=== PATIENT | male | born 1955 | race American Indian/Alaskan Native ===

== ENCOUNTER 2021-09-10 07:21 | Emergency (ER) | payer MEDICARE, MEDICAID ==
[2021-09-10 08:25] VITALS: BP 138/71
--- NOTE | 2021-09-10 10:23 | Emergency Department Report ---
ED General Adult HPI - General Chief complaint: Anxiety Stated complaint: SOB, CAN'T SLEEP Source: patient Mode of arrival: Ambulatory Limitations: No Limitations - History of Present Illness Initial comments: Chief complaint: "I have not been sleeping for the last 3 days. It is my anxiety." History: This is a 65-year-old male with history of tobacco dependence PR, congestive heart failure, hepatitis C, osteoarthritis of the left knee, diabetes mellitus, chronic back pain with sciatica, thyroid disease who presents with insomnia chronic back pain. He attempted melatonin [id number] without relief. He currently smokes half a pack of cigarettes per day. Receives care at the [facility]. He denies depression. Denies suicidal homicidal ideation. Patient has back pain radiating to the left leg which is unchanged. He denies new leg weakness. Denies bowel bladder incontinence. -: Gradual, days(s) (3 days ago) Severity scale (0 -10): 0 Consistency: intermittent, other (Racing thoughts at night) Worsens with: none Associated Symptoms: other (Chronic back and leg pain.) Treatments Prior to Arrival: other (Melatonin) - Related Data Home Medications Medication Instructions Recorded Confirmed Last Taken Oxycodone HCl/Acetaminophen 1 tab PO PRN PRN 06/07/16 06/19/16 06/18/16 [Percocet 10/325 mg] hydroCHLOROthiazide [HCTZ] 25 mg PO QDAY 06/07/16 06/19/16 06/18/16 Previous Rx's Medication Instructions Recorded Last Taken Type Levothyroxine [Synthroid] 125 mcg PO QAM #30 tablet 09/30/15 06/18/16 Rx Losartan [Cozaar] 100 mg PO DAILY #30 tablet 09/30/15 06/18/16 Rx glipiZIDE [glipiZIDE XL] 10 mg PO DAILY #30 tab.er.24 09/30/15 06/17/16 Rx Cyclobenzaprine [Flexeril] 10 mg PO TID PRN #30 tablet 09/10/21 Unknown Rx Allergies Allergy/AdvReac Type Severity Reaction Status Date / Time morphine Allergy Makes me Verified 06/13/16 10:30 hugo ED Review of Systems ROS: Stated complaint: SOB, CAN'T SLEEP Other details as noted in HPI Comment: All other systems reviewed and negative Constitutional: denies: chills, fever, malaise Respiratory: denies: cough, shortness of breath Cardiovascular: denies: chest pain Musculoskeletal: back pain Psychiatric: anxiety. denies: depression, auditory hallucinations, visual hallucinations, homicidal thoughts, suicidal thoughts ED Past Medical Hx - Past Medical History Previous Medical History?: Yes Hx Hypertension: Yes (x 9 yrs) Hx CVA: No Hx Heart Attack/AMI: No Hx Congestive Heart Failure: Yes Hx Diabetes: Yes Hx Deep Vein Thrombosis: No Hx Pulmonary Embolism: No Hx GERD: No Hx Liver Disease: No Hx Renal Disease: No Hx Sickle Cell Disease: No Hx Arthritis: No Hx Headaches / Migraines: No Hx Seizures: No Hx Kidney Stones: No Hx Psychiatric Treatment: No Hx Asthma: No Hx COPD: No Hx Tuberculosis: No Hx Dementia: No Hx HIV: No Additional medical history: hepatitis C - Surgical History Past Surgical History?: Yes Hx Coronary Stent: No Hx Open Heart Surgery: No Hx Pacemaker: No Hx Internal Defibrillator: No Hx Cholecystectomy: No Hx Appendectomy: No Hx Breast Surgery: No Additional Surgical History: back surgery,finger surgery on rt hand, - Social History Smoking Status: Current Every Day Smoker - Medications Home Medications: Home Medications Medication Instructions Recorded Confirmed Last Taken Type Levothyroxine [Synthroid] 125 mcg PO QAM #30 tablet 09/30/15 06/19/16 06/18/16 Rx Losartan [Cozaar] 100 mg PO DAILY #30 tablet 09/30/15 06/19/16 06/18/16 Rx glipiZIDE [glipiZIDE XL] 10 mg PO DAILY #30 tab.er.24 09/30/15 06/19/16 06/17/16 Rx Oxycodone HCl/Acetaminophen 1 tab PO PRN PRN 06/07/16 06/19/16 06/18/16 History [Percocet 10/325 mg] hydroCHLOROthiazide [HCTZ] 25 mg PO QDAY 06/07/16 06/19/16 06/18/16 History Cyclobenzaprine [Flexeril] 10 mg PO TID PRN #30 tablet 09/10/21 Unknown Rx ED Physical Exam - General Limitations: No Limitations General appearance: alert, in no apparent distress, other (Pleasant jovial articulate appears in good spirits) - Head Head exam: Present: atraumatic, normocephalic - Eye Eye exam: Present: normal appearance - ENT ENT exam: Present: mucous membranes moist - Neck Neck exam: Present: normal inspection, full ROM - Respiratory Respiratory exam: Present: normal lung sounds bilaterally. Absent: respiratory distress, wheezes, rales, rhonchi - Cardiovascular Cardiovascular Exam: Present: regular rate, normal rhythm, normal heart sounds. Absent: systolic murmur, diastolic murmur, rubs, gallop - GI/Abdominal GI/Abdominal exam: Present: soft, normal bowel sounds. Absent: distended, tenderness, guarding, rebound - Rectal Rectal exam: Present: deferred - Extremities Exam Extremities exam: Present: normal inspection - Neurological Exam Neurological exam: Present: alert, oriented X3, normal gait - Psychiatric Psychiatric exam: Present: normal affect, normal mood - Skin Skin exam: Present: warm, dry, intact, normal color. Absent: rash ED Course Vital Signs 09/10/21 08:24 Temperature 97.8 F Pulse Rate 62 Respiratory 18 Rate Blood Pressure 138/71 [Right] O2 Sat by Pulse 99 Oximetry ED Medical Decision Making - Medical Decision Making 1. Anxiety insomnia recommended smoking cessation especially in the evening time. He will double the dose of [id number] melatonin to 10 mg. 2. Chronic back pain with sciatica: Prescribed Flexeril. Referred to internal medicine physician and training development specialist. Critical care attestation.: If time is entered above; I have spent that time in minutes in the direct care of this critically ill patient, excluding procedure time. ED Disposition Clinical Impression: Anxiety, Insomnia, Sciatica Disposition: 01 HOME / SELF CARE / HOMELESS Is pt being admited?: No Does the pt Need Aspirin: No Condition: Stable Instructions: Sciatica, Managing Anxiety, Adult, Insomnia Prescriptions: Cyclobenzaprine [Flexeril] 10 mg PO TID PRN #30 tablet PRN Reason: Muscle Spasm Referrals: SAHIL CHAUDHARI MD [Staff Physician] - 3-5 Days TITO TAVERAS II, MD [Staff Physician] - 3-5 Days
== END 2021-09-10 10:44 | disposition home or self-care (01) ==
LOC: ED 07:21
DX: F41.9 Anxiety disorder, unspecified (principal); G47.00 Insomnia, unspecified; M54.30 Sciatica, unspecified side; I10 Essential (primary) hypertension; E11.9 Type 2 diabetes mellitus without complications; Z86.79 Personal history of other diseases of the circulatory system; Z88.6 Allergy status to analgesic agent
CPT/HCPCS: 99282

== ENCOUNTER 2022-03-01 16:47 | Emergency (ER) | payer MEDICAID, MEDICARE ==
--- NOTE | 2022-03-01 22:00 | Emergency Department Report ---
ED General Adult HPI - General Chief complaint: Extremity Problem,Nontraumatic Stated complaint: SWOLLEN LEG Time Seen by Provider: 03/01/22 21:00 Source: patient Mode of arrival: Ambulatory Limitations: No Limitations - History of Present Illness Initial comments: Patient 66-year-old male with history of hypertension, diabetes , arthritis and hypothyroidism who presents for right lower extremity pain and swelling x2 weeks. Patient states seen in urgent care referred to ED for rule out DVT. Patient denies suspicious travel or prolonged sitting or standing. Patient does have history of arthralgia. Pain is described as aching and tightness 4/10. Patient denies pain with dorsiflexion , there is no numbness or tingling, pain is radiating from ankle to right calf. Patient denies history of DVT. Not currently on coagulation therapy. Patient denies shortness of breath there is no fever chills there is no PND there is no chest pain no nausea or vomiting no lightheadedness or dizziness. Patient is retired. Severity scale (0 -10): 3 - Related Data Home Medications Medication Instructions Recorded Confirmed Last Taken Oxycodone HCl/Acetaminophen 1 tab PO PRN PRN 06/07/16 06/19/16 06/18/16 [Percocet 10/325 mg] Previous Rx's Medication Instructions Recorded Last Taken Type Levothyroxine [Synthroid] 125 mcg PO QAM #30 tablet 09/30/15 06/18/16 Rx Losartan [Cozaar] 100 mg PO DAILY #30 tablet 09/30/15 06/18/16 Rx glipiZIDE [glipiZIDE XL] 10 mg PO DAILY #30 tab.er.24 09/30/15 06/17/16 Rx Cyclobenzaprine [Flexeril] 10 mg PO TID PRN #30 tablet 09/10/21 Unknown Rx hydroCHLOROthiazide [HCTZ] 25 mg PO QDAY #30 tab 03/01/22 Unknown Rx Allergies Allergy/AdvReac Type Severity Reaction Status Date / Time morphine Allergy Makes me Verified 03/01/22 17:13 hugo ED Review of Systems ROS: Stated complaint: SWOLLEN LEG Other details as noted in HPI Constitutional: denies: chills, fever Eyes: denies: eye pain, eye discharge, vision change ENT: denies: ear pain, throat pain Respiratory: denies: cough, shortness of breath, wheezing Cardiovascular: denies: chest pain, palpitations Endocrine: no symptoms reported Gastrointestinal: denies: abdominal pain, nausea, diarrhea Genitourinary: denies: urgency, dysuria Musculoskeletal: arthralgia, other (Right lower extremity pain and swelling). denies: back pain, joint swelling Skin: as per HPI Neurological: denies: headache, weakness, paresthesias Psychiatric: denies: anxiety, depression Hematological/Lymphatic: denies: easy bleeding, easy bruising ED Past Medical Hx - Past Medical History Hx Hypertension: Yes (x 9 yrs) Hx CVA: No Hx Heart Attack/AMI: No Hx Congestive Heart Failure: Yes Hx Diabetes: Yes Hx Deep Vein Thrombosis: No Hx Pulmonary Embolism: No Hx GERD: No Hx Liver Disease: No Hx Renal Disease: No Hx Sickle Cell Disease: No Hx Arthritis: No Hx Headaches / Migraines: No Hx Seizures: No Hx Kidney Stones: No Hx Psychiatric Treatment: No Hx Asthma: No Hx COPD: No Hx Tuberculosis: No Hx Dementia: No Hx HIV: No Additional medical history: hepatitis C - Surgical History Hx Coronary Stent: No Hx Open Heart Surgery: No Hx Pacemaker: No Hx Internal Defibrillator: No Hx Cholecystectomy: No Hx Appendectomy: No Hx Breast Surgery: No Additional Surgical History: back surgery,finger surgery on rt hand, - Social History Smoking Status: Current Every Day Smoker - Medications Home Medications: Home Medications Medication Instructions Recorded Confirmed Last Taken Type Levothyroxine [Synthroid] 125 mcg PO QAM #30 tablet 09/30/15 06/19/16 06/18/16 Rx Losartan [Cozaar] 100 mg PO DAILY #30 tablet 09/30/15 06/19/16 06/18/16 Rx glipiZIDE [glipiZIDE XL] 10 mg PO DAILY #30 tab.er.24 09/30/15 06/19/16 06/17/16 Rx Oxycodone HCl/Acetaminophen 1 tab PO PRN PRN 06/07/16 06/19/16 06/18/16 History [Percocet 10/325 mg] Cyclobenzaprine [Flexeril] 10 mg PO TID PRN #30 tablet 09/10/21 Unknown Rx hydroCHLOROthiazide [HCTZ] 25 mg PO QDAY #30 tab 03/01/22 Unknown Rx ED Physical Exam - General Limitations: No Limitations General appearance: alert, in no apparent distress - Head Head exam: Present: normocephalic, normal inspection - Eye Eye exam: Present: normal appearance, EOMI Pupils: Present: normal accommodation - ENT ENT exam: Present: mucous membranes moist - Neck Neck exam: Present: normal inspection, tenderness, full ROM - Respiratory Respiratory exam: Present: normal lung sounds bilaterally. Absent: respiratory distress, wheezes, stridor, chest wall tenderness - Cardiovascular Cardiovascular Exam: Present: regular rate, normal rhythm, normal heart sounds. Absent: systolic murmur, diastolic murmur, rubs, gallop - GI/Abdominal GI/Abdominal exam: Present: soft, normal bowel sounds. Absent: distended, tenderness, bruit, hernia - Rectal Rectal exam: Present: deferred - Expanded Lower Extremity Exam Right Lower Leg exam: Present: full ROM, swelling (Moderate swelling +1 pitting). Absent: tenderness, abrasion, laceration, ecchymosis, deformity, crepidus, dislocation, erythema, palpable cord, Alfredo's sign Ankle exam: Present: full ROM, swelling. Absent: crepidus Foot/Toe exam: Present: full ROM, swelling. Absent: ecchymosis, crepidus, erythema Neuro vascular tendon exam: Absent: pulse deficit, motor deficit, sensory deficit, tendon deficit Gait: Positive: observed and normal - Back Exam Back exam: Present: normal inspection, full ROM. Absent: CVA tenderness (R), CVA tenderness (L) - Neurological Exam Neurological exam: Present: alert, oriented X3, CN II-XII intact, normal gait - Expanded Neurological Exam Expanded Patient oriented to: Present: person, place, time Speech: Present: fluid speech Motor strength exam: RUE: 5, LUE: 5, RLE: 5, LLE: 5 DTR: knee (R): 1+, knee (L): 1+, ankle (R): 1+, ankle (L): 1+ Best Eye Response (Hanna): (4) open spontaneously Best Motor Response (Hanna): (6) obeys commands Best Verbal Response (Hanna): (5) oriented [place] Total: 15 - Psychiatric Psychiatric exam: Present: normal affect, normal mood - Skin Skin exam: Present: warm, dry, intact, normal color. Absent: rash ED Course Vital Signs 03/01/22 17:09 Temperature 98.6 F Pulse Rate 93 H Respiratory 20 Rate Blood Pressure 148/89 [Right] O2 Sat by Pulse 94 Oximetry ED Medical Decision Making - Radiology Data Radiology results: report reviewed, image reviewed RIGHT TIBIA/FIBULA 4 VIEWS INDICATION / CLINICAL INFORMATION: Right leg pain and swelling. COMPARISON: None available. FINDINGS: BONES and JOINT(S): No acute fracture or subluxation. No significant arthritis. SOFT TISSUES: Moderate edema is seen throughout the right leg. No other significant abnormality. ADDITIONAL FINDINGS: None. IMPRESSION: Moderate right leg edema without other acute findings. Signer Name: Brennan Steward MD Signed: 03/01/2022 10:10 PM Workstation Name: [id number] Transcribed By: MN Dictated By: Brennan Steward MD Electronically Authenticated By: Brennan Steward MD Signed Date/Time: 03/01/222209 DD/ 07 TD/TT: US Doppler LE: No DVT - Medical Decision Making Ultrasound Doppler lower extremity negative for DVT, tib-fib x-ray no fracture moderate soft tissue edema. Distal pulses are intact range of motion is intact no pain with dorsiflexion, lung sounds are clear. Shows no shortness of breath no crackles no wheezing no murmur. Plan NSAIDs as needed pain, follow-up with primary care doctor in 2 to 3 days. Patient verbalized agreement and understanding with discharge plan. Patient will follow-up primary care doctor tomorrow. Patient DC'd home in stable condition at this time. Critical care attestation.: If time is entered above; I have spent that time in minutes in the direct care of this critically ill patient, excluding procedure time. ED Disposition Clinical Impression: Leg edema, right Disposition: 01 HOME / SELF CARE / HOMELESS Is pt being admited?: No Does the pt Need Aspirin: No Condition: Stable Instructions: Peripheral Edema Additional Instructions: Take medications as prescribed, follow-up with your doctor in 1 to 2 days. Return to emergency department should symptoms worsen. Prescriptions: hydroCHLOROthiazide [HCTZ] 25 mg PO QDAY #30 tab Referrals: SAHIL CHAUDHARI MD [Staff Physician] - [facility] Forms: Work/School Release Form(ED) Time of Disposition: 23:01
--- NOTE | 2022-03-01 22:14 | XRay Report ---
RIGHT TIBIA/FIBULA 4 VIEWS INDICATION / CLINICAL INFORMATION: Right leg pain and swelling. COMPARISON: None available. FINDINGS: BONES and JOINT(S): No acute fracture or subluxation. No significant arthritis. SOFT TISSUES: Moderate edema is seen throughout the right leg. No other significant abnormality. ADDITIONAL FINDINGS: None. IMPRESSION: Moderate right leg edema without other acute findings. Signer Name: Brennan Steward MD Signed: 03/01/2022 10:10 PM Workstation Name: [id number]
[2022-03-01 23:25] VITALS: BP 142/87
--- NOTE | 2022-03-02 00:08 | Vascular Lab Report ---
DUPLEX DOPPLER LOWER EXTREMITY VEINS, RIGHT INDICATION / CLINICAL INFORMATION: r/o dvt. TECHNIQUE: Duplex doppler imaging was performed through the veins of the right lower extremity using venous compression and other maneuvers. COMPARISON: None available. FINDINGS: RIGHT COMMON FEMORAL VEIN: Negative. RIGHT FEMORAL VEIN: Negative. RIGHT POPLITEAL VEIN: Negative. RIGHT CALF VEINS: Negative. ADDITIONAL FINDINGS: Prominent right inguinal lymph nodes. Subcutaneous edema present within the righ t calf. IMPRESSION: 1. No sonographic evidence for DVT in the right lower extremity. Signer Name: Robert Richard II, MD Signed: 03/02/2022 12:04 AM Workstation Name: [id number]
== END 2022-03-01 23:18 | disposition home or self-care (01) ==
LOC: ED 16:47
DX: R60.0 Localized edema (principal); I10 Essential (primary) hypertension; E11.9 Type 2 diabetes mellitus without complications; F17.200 Nicotine dependence, unspecified, uncomplicated; Z91.09 Other allergy status, other than to drugs and biological substances; Z79.899 Other long term (current) drug therapy
CPT/HCPCS: 99284